=== PATIENT | female | born 1985 ===

== ENCOUNTER 2023-09-06 22:26 | Emergency (ER) | payer OTHER ==
[~2023-09-06] VITALS: Ht 170.2 cm; Wt 77.3 kg
[2023-09-06 22:30] VITALS: BP 120/76; PULSE 110; RESP 22; TEMP 98.9
== END 2023-09-06 23:12 ==
LOC: EMS 22:26
DX: Z02.89 Encounter for other administrative examinations (principal)
CPT/HCPCS: 99283